=== PATIENT | female | born 1975 | race African-American/Black ===

== ENCOUNTER 2021-07-28 11:52 | Inpatient (IN) | payer OTHER ==
[~2021-07-28] VITALS: Ht 160 cm; Wt 59.0 kg
[~2021-07-28 11:52] MED LIST: ARTHROTEC 75 T1 EAC1 PO
[2021-07-28 11:59] VITALS: BP 172/87
[2021-07-28 12:41] LABS: ABSOLUTE NEUTROPHILS 5.1 thou/uL (1.4-8.2); BASOPHILS 0.5 % (0.0-2.0); HEMATOCRIT 43.3 % (37.0-47.0); HEMOGLOBIN 14.8 gm/dL (12.0-15.0); MCH 33.4 pg (26.0-34.0); MCHC 34.2 g/dL (28.0-37.0); MCV 97.5 fL (80.0-100.0); MONOCYTES 11.2 % (1.0-8.0); PLATELET COUNT 302 thou/uL (150-400); POLYS 69.3 % (36.0-66.0); RBC 4.45 mil/uL (4.20-5.00); RDW 13.9 % (10.5-14.5); WBC 7.3 thou/uL (4.0-11.0)
[2021-07-28 13:05] LABS: ALBUMIN 3.8 g/dL (3.4-5.0); CALCIUM 9.5 mg/dL (8.5-10.1); CREATININE 0.7 mg/dL (0.6-1.0); DIRECT BILIRUBIN 0.2 mg/dL (<0.1-0.2); TOTAL BILIRUBIN 0.6 mg/dL (0.2-1.0); TOTAL PROTEIN 8.1 g/dL (6.4-8.2)
[2021-07-28 13:11] LABS: POTASSIUM 2.6 mmol/L (3.5-5.1)
[2021-07-28] MEDS ORDERED: LYRICA25 MG PO (13:33)
[2021-07-28] MEDS ORDERED: NADOLOL 20 MG T20 M1 PO (13:34)
[2021-07-28] MEDS ORDERED: CARAFATE1 GM PO (13:34)
--- NOTE | 2021-07-28 13:37 | EKG ---
[address] [place] [address] ELECTROCARDIOGRAM REPORT Name: CRISTY MAY Room #: [facility]..#: [id number] Admission: Attend Phys: Discharge: Date of : 73 Report #: [id number] [facility] ED Test Date: 2021-07-28 Test Time: 12:04:56 Pat Name: CRISTY MAY Department: Room: Gender: Technical Delivery Manager: BARBARA : 1975 Requested By: Joseph Thompson Order Number: [id number] MD: Elijah Garcia Measurements Intervals Eldridge Rate: 97 P: 69 MN: 148 QRS: 41 QRSD: 70 T: 39 QT: 375 QTc: 477 Interpretive Statements Sinus rhythm Left atrial enlargement Anterior infarct, old Baseline wander in lead(s) I,aVL No previous ECG available for comparison Electronically Signed On 07-28-2021 13:36:49 CDT by Elijah Garcia [email or web address] <ELECTRONICALLY SIGNED> By: Elijah Garcia MD, [facility] 07/28/21 1336 1204 1204 Elijah Garcia MD, FACC /EPI
[2021-07-28 16:27] LABS: CHOLESTEROL 204 mg/dL (<200); HDL CHOLESTEROL 107 mg/dL (>40); LDL CHOLESTEROL 80 mg/dL (<100); TC:HDL 1.9 Ratio (Not establshd); TRIGLYCERIDE 87 mg/dL (<150); VLDL 17 mg/dL (<40)
[2021-07-28 16:31] VITALS: BP 122/61
[2021-07-28 17:20] VITALS: BP 118/90
--- NOTE | 2021-07-28 18:04 | NUR ---
ASSUMED PT CARE AT 1530 FROM ED. PT IS ALERT & ORIENTED X4. PT HAS IV SITE ON RAC 20 GAUGE RUNNING KCL AND NS. PT IS ON TELE MONITOR ON. PT IS UP AD YOGESH. PT C/O OF PAIN AND GIVEN PAIN MEDICATION PER PT REQUEST. PT IS ON ROOM AIR. NO C/O OF NAUSEA AND VOMITING. FINISHED ADMISSION. PT ON THE BED, BED ON THE LOWEST POSITION, SIDE RAILS UP, CALL LIGHT WITHIN REACH. WILL CONTINUE TO MONITOR PT. FOLLOW POC.
[2021-07-28 19:03] LABS: HEMATOCRIT 42.5 % (37.0-47.0); HEMOGLOBIN 14.4 gm/dL (12.0-15.0)
[2021-07-28 19:56] VITALS: BP 147/95
[2021-07-29 03:37] LABS: HEMATOCRIT 38.1 % (37.0-47.0); HEMOGLOBIN 12.8 gm/dL (12.0-15.0); MCHC 33.6 g/dL (28.0-37.0); MCV 98.4 fL (80.0-100.0); RBC 3.87 mil/uL (4.20-5.00); WBC 7.9 thou/uL (4.0-11.0)
[2021-07-29 03:43] VITALS: BP 150/78
[2021-07-29 04:00] LABS: CALCIUM 8.7 mg/dL (8.5-10.1); CREATININE 0.7 mg/dL (0.6-1.0); POTASSIUM 3.3 mmol/L (3.5-5.1)
--- NOTE | 2021-07-29 05:15 | NUR ---
UP AD YOGESH IN ROOM. C/O ABDOMINAL PAIN. DENIES CHEST PAIN. GETTING NORCO WITH RELIEF. CONTINUES TO BE NPO. IV FLUIDS AND PROTONIX DRIP IN PLACE.
[2021-07-29 08:27] VITALS: BP 149/86
[2021-07-29 09:36] LABS: HEMATOCRIT 37.4 % (37.0-47.0); HEMOGLOBIN 12.6 gm/dL (12.0-15.0)
[2021-07-29 15:55] VITALS: BP 180/96
[2021-07-29 16:29] LABS: HEMATOCRIT 38.9 % (37.0-47.0); HEMOGLOBIN 12.7 gm/dL (12.0-15.0)
[2021-07-29 21:00] VITALS: BP 178/101
[2021-07-29] MEDS ORDERED: ZESTRIL10 MG PO (22:09)
[2021-07-30 01:11] VITALS: BP 178/101
[2021-07-30 01:15] LABS: HEMATOCRIT 36.5 % (37.0-47.0); HEMOGLOBIN 12.2 gm/dL (12.0-15.0)
[2021-07-30 02:07] VITALS: BP 168/99
--- NOTE | 2021-07-30 04:50 | NUR ---
PT VOICED LUQ PAIN THAT WAS BETTER ADRESSED PHARMACOLOGICALLY, ON CLEAR LIQUID DIET, BP ELEVATED NEW ORDER RECEIVED TO ADMINISTER LISINOPRIL 10MG AND REQUEST PT TO FIND HER HCTZ DOSE SHE USES AT HOME ALONG WITH LISINOPRIL IF ABLE TO, HAVE FAMILY MEMBER BRING MEDICATION PER THE DR'S ORDER AND PRESENT TO THE NURSE. PT SLEPT MOST PART OF THE NIGHT VOIDED MULTIPLE TIME NO AVERSE REACTION NOTED LAB WORK DONE, IV FLUIDS IN PROGRESS.
[2021-07-30 07:33] VITALS: BP 152/93
[2021-07-30 08:08] LABS: HEMATOCRIT 35.6 % (37.0-47.0); HEMOGLOBIN 12.3 gm/dL (12.0-15.0)
[2021-07-30] MEDS ORDERED: NADOLOL 20 MG T20 M1 PO (09:38)
[2021-07-30] MEDS ORDERED: ZOFRAN 4 MG ORAL4 MG PO (09:38)
[2021-07-30] MEDS ORDERED: HYDROCODON-ACE1 EAC7 PO (09:38)
[2021-07-30] MEDS ORDERED: PROTONIX40 M2 PO (09:38)
[2021-07-30 11:29] VITALS: BP 147/93
[2021-07-30 15:00] VITALS: BP 147/93
[2021-07-30 15:53] VITALS: BP 149/92
--- NOTE | 2021-07-30 19:24 | NUR ---
RN ASSUMED PT'S CARE AT 0700-1400PM, PT IS A&OX4, PT'S N/V AND ABD PIAN HAVE IMPROVED, PT IS TOLERAIVE REGULAL DIET, RN RECEIVED ORDER TO DC PT TO HOME, PT UNDERSTANDED DC TEACHING WELL , RN USED W/C TO SEND TO TO ER FRONT DOOR TO MEET PT'S FATHER.
== END 2021-07-30 16:26 | disposition home or self-care (01) | DRG 439 ==
LOC: ER 11:52 → 4S 16:04 → EROBS 16:04 → 4S 16:56
PROVIDERS: Emergency Medicine; ADMIT Hospitalist; ATTEND Hospitalist
DX: K85.20 Alcohol induced acute pancreatitis without necrosis or infection (principal); K92.0 Hematemesis; E87.6 Hypokalemia; Z20.822 Contact with and (suspected) exposure to COVID-19; Z79.899 Other long term (current) drug therapy; F17.210 Nicotine dependence, cigarettes, uncomplicated
CPT/HCPCS: 10100